=== PATIENT | female | born 1960 | race Caucasian/White ===

== ENCOUNTER 2016-07-05 08:11 | Day surgery (SDC) | payer OTHER ==
[~2016-07-05] VITALS: Ht 165.1 cm; Wt 55.0 kg
[~2016-07-05 08:11] MED LIST: COLACE100 MG PO; PERCOCET 5-3251 EACH PO; VALIUM2 MG PO; ZOFRAN4 M1 PO
--- NOTE | 2016-07-07 08:05 | OR ---
ADMIT: 07/05/2016 RM/LOC: [facility] MR#: [id number] [address] [place] [id number] Operative/Delivery Room Report SEX: F AGE: 56 : 1960 SURGERY DATE: 07/05/2016 SURGEON: Sunny Wen MD QA ENGINEER: None. PREPROCEDURE DIAGNOSES: 1. Lumbar spondylosis. 2. Lumbago. POSTPROCEDURE DIAGNOSES: 1. Lumbar spondylosis. 2. Lumbago. PROCEDURE PERFORMED: Left L3, L4, L5 and S1 radiofrequency thermocoagulation. INDICATIONS FOR PROCEDURE: The patient is a pleasant female with history of chronic low back secondary to above-mentioned diagnoses comes here for planned left-sided lumbar radiofrequency ablation. ANESTHESIA: Local without sedation. ESTIMATED BLOOD LOSS: Zero. COMPLICATIONS: None immediately evident. DESCRIPTION OF THE PROCEDURE: After the patient was seen in the preoperative area, vitals signs were taken. Prior to the procedure, the risks, benefits, and alternative therapies were discussed at length. Patient consent was obtained and updated. The patient was taken to the fluoroscopy suite and placed on the fluoroscopy table in the prone position. Pressure points were padded to comfort, monitors applied, and a timeout performed. ADMIT: 07/05/2016 RM/LOC: [facility] MR#: [id number] [id number] [place] [id number] Operative/Delivery Room Report SEX: F AGE: 56 : 1960 Fluoroscopy was brought in to identify the transverse process of the left L3, L4, L5-S1. To anesthetize the skin, a spinal cannula was placed near the junction of pedicle and transverse process. Once we obtained appropriate parameters for sensory motor testing, we proceeded with radiofrequency thermocoagulation at each level, which consisted of 80 degrees for 90 seconds. The patient tolerated the procedure well. The patient did not feel any stimulation below her knees. The patient was discharged to post anesthesia care without any immediate complications. PLAN: Discharge instructions were given, followup scheduled. 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 Sunny Wen MD/ janina JOB #: [id number] CC: Sunny Wen, Attending Physician Myra Kennedy, Family Physician
== END 2016-07-05 10:45 | disposition home or self-care (01) ==
LOC: SSS 08:11
PROC: BR16YZZ Fluoroscopy of Lumbar Facet Joint(s) using Other Contrast (ICD-10-PCS; principal; 2016-07-05)
PROC: 3E0T3TZ Introduction of Destructive Agent into Peripheral Nerves and Plexi, Percutaneous Approach (ICD-10-PCS; principal; 2016-07-05)
DX: G89.29 Other chronic pain (principal); M47.816 Spondylosis without myelopathy or radiculopathy, lumbar region; Z79.891 Long term (current) use of opiate analgesic; Z79.899 Other long term (current) drug therapy; Z88.2 Allergy status to sulfonamides

== ENCOUNTER → 2016-07-10 | Outpatient (CLI) | payer OTHER | END | disposition home or self-care (01) | DX: C21.1 Malignant neoplasm of anal canal (principal) ==

== ENCOUNTER 2016-07-16 12:09 | Emergency (ER) | payer OTHER ==
--- NOTE | 2016-07-22 17:58 | ER ---
ADMIT: 07/16/2016 RM/LOC: ER [facility] MR#: [id number] [id number] [id number] [address] [place] [address] [place] [phone] Emergency Room Report SEX: F AGE: 56 : 1960 DATE: 07/16/2016 CHIEF COMPLAINT: Injury to left index finger. HISTORY OF PRESENT ILLNESS: This is a pleasant 56-year-old female, who presents after she cut her finger while trimming bushes at home. This occurred just prior to arrival. States it bled profusely. She applied pressure arrives, now bleeding controlled. Denies any other injuries. COURSE IN EMERGENCY ROOM: The patient was seen and examined. PHYSICAL EXAMINATION: VITAL SIGNS: She is afebrile and nontoxic. GENERAL: She is no acute distress. EXTREMITIES: She has an irregular avulsion-type laceration to the left index finger, primarily into the dermis. No subcutaneous tissue is seen. No obvious foreign bodies. She does have some swelling and pain with movement and to touch. No other injuries. Sensation is intact distally. Strength is good with flexion and extension despite pain. Cap refill is brisk. I did repair the laceration with Dermabond. Given instructions on keeping this clean and dry. She was updated on her tetanus today. IMPRESSION: Laceration of left index finger. DISPOSITION: The patient was discharged, to keep this clean and dry for the next 3 to 5 days. Monitor for any signs of infection. Follow up with primary care, sooner if needed. Tylenol and ibuprofen for pain. Apply ice as needed for pain. Questions sought and answered to best of my ability and the patient's satisfaction. Discharged in stable condition. ELEANOR Parr / Omari Maki MD / janina JOB #: [id number] CC: Omari Maki MD, Attending Physician Myra Kennedy MD, Family Physician
== END 2016-07-16 13:52 | disposition home or self-care (01) ==
LOC: ER 12:09
DX: S61.211A Laceration without foreign body of left index finger without damage to nail, initial encounter (principal); F17.200 Nicotine dependence, unspecified, uncomplicated; Z23 Encounter for immunization; Z85.038 Personal history of other malignant neoplasm of large intestine; W45.8XXA Other foreign body or object entering through skin, initial encounter; Y92.009 Unspecified place in unspecified non-institutional (private) residence as the place of occurrence of the external cause